=== PATIENT | female | born 1950 | race Caucasian/White ===

== ENCOUNTER → 2024-09-01 11:54 | Outpatient (REF) | payer OTHER, SELFPAY | LOC: WDC 11:54 | PROVIDERS: ATTENDING PHYSICIAN Nurse Practitioner Family | DX: Z12.31 Encounter for screening mammogram for malignant neoplasm of breast (principal) | CPT/HCPCS: 77063; 77067 ==

== ENCOUNTER → 2025-09-11 10:39 | Outpatient (REF) | payer OTHER, SELFPAY | LOC: WDC 10:39 | PROVIDERS: ATTENDING PHYSICIAN Nurse Practitioner Obstetrics & Gynecology; FAMILY PHYSICIAN Nurse Practitioner Family | DX: Z12.31 Encounter for screening mammogram for malignant neoplasm of breast (principal) | CPT/HCPCS: 77063; 77067 ==